=== PATIENT | female | born 1940 | race Caucasian/White ===

== ENCOUNTER → 2016-12-06 | Outpatient (CLI) | payer OTHER ==
[~2016-12-06] VITALS: Ht 160 cm; Wt 84.8 kg
[~2016-12-06] MED LIST: ASPIR 8181 MG PO; BIOTIN1 MG PO; CALCIUM500 M1 PO; HYDROCODONE-AP1 EAC6 PO; LIPITOR10 MG PO; MOBIC15 MG PO; NEURONTIN 300300 M1 PO; PERCOCET 10-321 EACH PO; PRILOSEC OTC20 MG PO; PRINIVIL10 MG PO
--- NOTE | ~2016-12-06 | HPC ---
[facility] [place] [address] PAIN MANAGEMENT CONSULTATION Name: SHAYNA MARIA Room #: REG CATRACHITA Funes#: [id number] Admission: 12/06/16 Attend Phys: Jensen Dorado DO Discharge: Date of : 39 Report #: [id number] THIS REPORT FOR: //name// CC: Edy Dorado The patient is a pleasant 76-year-old female, previously seen in the pain clinic on 11/12/2016, diagnosed with symptomatic lumbar radiculopathy. This patient was given a lumbar epidural injection at L5-S1 at that time. We ordered an MRI of the lumbar spine. She returns to pain clinic today, noting incremental improvement of baseline pain, but still has ongoing pain in back, legs to the feet, it has been present for 6 months. I ordered an MRI of the lumbar spine. It was accomplished on 11/12/2016. I reviewed this with the patient today. L4-L5 notes severe bilateral facet recess stenosis with severe central stenosis at this level. PHYSICAL EXAMINATION: Relatively unchanged, a 76-year-old female, BMI is 33.1 kilograms per meter squared. Vital signs are stable as noted in the EMR. Rises from the chair using armrest. Modestly antalgic gait, diffuse tenderness across the low back, positive straight leg raise, right greater than left. ASSESSMENT: Symptomatic lumbar radiculopathy, secondary to spinal stenosis. RECOMMENDATIONS: Repeat epidural injection today; however, given only modest efficacy at last visit at L5-S1, we will go above the fairly stenotic area (L4-L5) and proceed with the midline injection at L3-L4. If this does not afford adequate relief, we will consider bilateral L4-L5 transforaminal epidural injections. PROCEDURE NOTE: Lumbar epidural injection under fluoroscopy. DESCRIPTION OF PROCEDURE: After both written and informed consent to include risk of spinal cord damage, increased pain, weakness and dural puncture, the patient was taken to the fluoroscopy suite, placed in the prone position. After sterile prep and drape, a skin wheal with lidocaine was raised. A 22-gauge epidural Tuohy needle was inserted in the midline at L3-L4 with good loss to resistance. Negative aspiration for cerebrospinal fluid or blood was noted. Then 1 mL of Omnipaque under biplanar fluoroscopy showed good spread within the epidural space. This was followed with 80 mg of triamcinolone plus 1 mL of 1.5% preservative-free Xylocaine, 0.5 mL Xylocaine was then injected to flush the needle; it was removed. The patient was monitored for an appropriate period of time and discharged in good and stable condition. <ELECTRONICALLY SIGNED> By: Jensne Dorado DO 12/13/16 0858 1638 01 Jensen Dorado DO /nt
[2016-12-06 14:08] VITALS: BP 105/61
== END | disposition home or self-care (01) ==
LOC: PAIN 06:51
DX: M48.06 Spinal stenosis, lumbar region (principal); Z87.891 Personal history of nicotine dependence

== ENCOUNTER → 2016-12-09 | Outpatient (CLI) | payer OTHER | LOC: RAD 08:54 | DX: M47.896 Other spondylosis, lumbar region (principal); M48.06 Spinal stenosis, lumbar region ==

== ENCOUNTER → 2016-12-27 | Outpatient (CLI) | payer OTHER ==
[~2016-12-27] VITALS: Ht 160 cm; Wt 87.1 kg
--- NOTE | ~2016-12-27 | HPC ---
[facility] [place] [address] PAIN MANAGEMENT CONSULTATION Name: SHAYNA MARIA Room #: REG CATRACHITA Funes#: [id number] Admission: 12/27/16 Attend Phys: Jensen Dorado DO Discharge: Date of : 39 Report #: [id number] THIS REPORT FOR: //name// CC: Edy Dorado The patient is a very pleasant 76-year-old female, being treated for lumbar radiculopathy secondary to spinal stenosis. She has had 2 lumbar epidural injections on 11/12/2016 and 12/06/2016. Both injections have afforded good yet incremental and moderately transient relief. She notes the last injection afforded 50% relief for 2 weeks. The pain has begun to recur. She rates her pain as 6/10. She saw Dr. Hammonds and is planning on having decompressive laminectomy on 01/13/2017. Dr. Hammonds suggested and I agree that she should repeat an injection today to help ameliorate symptoms prior to surgery. She has severe central spinal stenosis at L4-L5. Ongoing radicular pain with classic neurogenic claudication. With any activity, she notes pain, that her legs feel quite heavy. PHYSICAL EXAMINATION: Unchanged. This is a pleasant 76-year-old female appearing younger than stated age. BMI is 34 kilograms per meter squared. Vital signs stable as noted on the EMR. Rises from the chair using armrest. Gait is initially tandem, but quickly, she starts to weakness in her legs. Little positive straight leg raise bilaterally. ASSESSMENT: Symptomatic lumbar radiculopathy, secondary to spinal stenosis. PROCEDURE: Lumbar epidural injection under fluoroscopy at L5-S1. RECOMMENDATIONS: Follow up after surgery with Dr. Hammonds as needed for medication management. Thank you for allowing me to participate in this patient's care. PROCEDURE NOTE: Lumbar epidural injection under fluoroscopy. DESCRIPTION OF PROCEDURE: After both written and informed consent to include risk of spinal cord damage, increased pain, weakness and dural puncture, the patient was taken to the fluoroscopy suite, placed in the prone position. After sterile prep and drape, a skin wheal with lidocaine was raised. A 22-gauge epidural Tuohy needle was inserted in the midline at L5-S1 with good loss to resistance. Negative aspiration for cerebrospinal fluid or blood was noted. Then 1 mL of Omnipaque under biplanar fluoroscopy showed good spread within the epidural space. This was followed with 80 mg of triamcinolone plus 1 mL of 1.5% preservative-free Xylocaine, 0.5 mL Xylocaine was then injected to flush the [address] [address] PAIN MANAGEMENT CONSULTATION Name: SHAYNA MARIA Room #: REG [facility] Shantel#: [id number] Admission: 12/27/16 Attend Phys: Jensen Dorado DO Discharge: Date of : 39 Report #: [id number] needle; it was removed. The patient was monitored for an appropriate period of time and discharged in good and stable condition. <ELECTRONICALLY SIGNED> By: Jensen Dorado DO 12/31/16 0811 1540 [id number] Jensen Dorado DO /nt
[2016-12-27 14:13] VITALS: BP 137/77
== END | disposition home or self-care (01) ==
LOC: PAIN 07:10
DX: M54.16 Radiculopathy, lumbar region (principal); M48.06 Spinal stenosis, lumbar region

== ENCOUNTER → 2017-04-13 | Outpatient (CLI) | payer OTHER | LOC: ULTRA 09:22 | DX: R60.0 Localized edema (principal) ==

== ENCOUNTER → 2017-07-19 | Outpatient (CLI) | payer OTHER | LOC: RAD 01:15 | DX: Z12.31 Encounter for screening mammogram for malignant neoplasm of breast (principal) ==

== ENCOUNTER → 2019-03-05 | Outpatient (CLI) | payer OTHER ==
[~2019-03-05] VITALS: Ht 160 cm; Wt 93.1 kg
[~2019-03-05] MED LIST changes: +ATENOLOL 50MG T50 M1 PO; +ATORVASTATIN CA40 MG PO; +LISINOPRIL-HCT1 EAC1 PO; +NEURONTIN600 MG PO
--- NOTE | ~2019-03-05 | HPC ---
[facility] [place] [address] [address] [place] [address] PAIN MANAGEMENT CONSULTATION Name: SHAYNA MARIA Room #: REG [facility] M..#: [id number] Admission: 03/05/19 ������������������ Attend Phys: Georges Freeman MD Discharge: ������������������ Date of : 39 Report #: [id number] THIS REPORT FOR: //name// CC: Edy Freeman DATE OF SERVICE: 03/05/2019 The patient is a pleasant 78-year-old who has post-laminectomy syndrome. She underwent a laminectomy 2 years ago, which was complicated by a postoperative wound infection. She spent additional weeks in the hospital on IV antibiotics and over a month in rehab. She now has pain related to her back issues, scar tissue and she has evidence of neuropathic pain in the leg, which may be in part peripheral neuropathy, but also likely some degree of lumbar radiculopathy. Much of her pain is across her low back. She has limits in range of motion, flexion and extension. She walks with an antalgic gait. She scores her pain as an 8/10. She was recently seen by Dr. Hammonds and is here today for lumbar epidural injection treatment. MEDICATIONS: Lisinopril/hydrochlorothiazide, atorvastatin, atenolol, gabapentin, aspirin, omeprazole, biotin, meloxicam. ALLERGIES: IODINE, CODEINE. PAST MEDICAL HISTORY: Significant for the noted back surgery. She also had cervical radiculopathy, which was treated very successfully by Dr. Jensen Dorado with a cervical epidural injection. She had a mastectomy in 2002 for breast cancer and has done well, considered cured at this time. Dr. Campoverde prescribes her medication for hypertension. 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 She enjoys her work. She denies use of tobacco, drinks alcohol socially, and admits to 1-2 drinks in a 24-hour period of time. REVIEW OF SYSTEMS: Completed by the patient and is once again reviewed. She complains of some recent weight gain, but otherwise describes her review as good general health. PHYSICAL EXAMINATION: A very pleasant 78-year-old female, alert, oriented. No signs of depression or anxiety. She moves independently from sitting to standing position, ambulates without unsteadiness, but her gait is certainly antalgic. Examination of the chest reveals clear breath sounds. Cardiac rhythm is regular. Examination of the spine reveals a scar in the back from previous [facility] [address] [place] [address] PAIN MANAGEMENT CONSULTATION Name: SHAYNA MARIA Room #: REG CATRACHITA AlcarazOwen#: [id number] Admission: 03/05/19 ������������������ Attend Phys: Georges Freeman MD Discharge: ������������������ Date of : 39 Report #: [id number] surgery with reexploration. There is tenderness throughout the scar. She has limits in flexion and extension. Straight leg raising is mildly positive bilaterally, but most of her pain appears to be across the lumbosacral segment. IMPRESSION: Chronic low back pain, post-laminectomy syndrome. RECOMMENDATIONS: Lumbar epidural steroid injection under fluoroscopic guidance. PROCEDURE: She was taken to fluoroscopic suite, placed prone. Skin prepped with ChloraPrep. Skin anesthetized below her scar at L5-S1. A 20-gauge Tuohy epidural needle advanced first attempt in the epidural space with loss of resistance technique. There was no blood, no CSF aspirated. 1 mL of Omnipaque injected. Good spread of dye observed, followed by 3 mL of 0.5% lidocaine mixed with 80 mg of triamcinolone. She tolerated the procedure well and was observed for 45 minutes and discharged. Followup visit planned as needed. ��������������������������������������������� ���������������������������������������� By: ��������������������������������������������� 1650 0552 Georges Freeman MD /nt
[2019-03-05 14:33] VITALS: BP 150/66
--- NOTE | 2019-03-05 14:55 | NUR ---
Pain Clinic Assessment: 1. History of Osteoarthritis: BACK History of Rheumatoid Arthritis: Not Applicable 2. Height: 5 ft. 3 in. 160.0 cm. Weight: 205.2 lb. oz. 93.078 kg. Patient's BMI: 36.4 3. Vital Signs: BP: 150/66 Pulse: 55 Resp: 16 Temp: 02 Sat: 100 ECG Mon: 4. Pain Intensity: 8 5. Fall Risk: Dizziness: N Needs help standing or walking: N Fallen in the last 3 months: Y Fall risk comments: 6. Patient on Blood Thinner: None 7. History of Hypertension: Y 8. Opioid Therapy greater than 6 weeks: N Opiate Contract Signed: 9. Risk Assessment Tool Provided: LOW-0 10. Functional Assessment Tool: 34/ 11. Recreational Drug Use: Never Drug Type: Tobacco Use: Former Smoker Tobacco Type: Amount or Packs/day: How Many Years: Alcohol Use: Yes Frequency: Daily Quant: 2
== END | disposition home or self-care (01) ==
LOC: PAIN 06:59
DX: M54.16 Radiculopathy, lumbar region (principal); G89.29 Other chronic pain; M96.1 Postlaminectomy syndrome, not elsewhere classified; I10 Essential (primary) hypertension; Z91.041 Radiographic dye allergy status; Z98.890 Other specified postprocedural states; Z88.6 Allergy status to analgesic agent; Z79.899 Other long term (current) drug therapy; Z87.891 Personal history of nicotine dependence; Z85.3 Personal history of malignant neoplasm of breast; Z79.82 Long term (current) use of aspirin

== ENCOUNTER → 2019-04-05 | Outpatient (CLI) | payer OTHER ==
[~2019-04-05] VITALS: Ht 160 cm; Wt 92.2 kg
--- NOTE | ~2019-04-05 | HPC ---
[facility] [address] [place] [address] PAIN MANAGEMENT CONSULTATION Name: SHAYNA MARIA Room #: REG CATRACHITA Lissa.#: [id number] Admission: 04/05/19 ������������������ Attend Phys: Georges Freeman MD Discharge: ������������������ Date of : 39 Report #: [id number] THIS REPORT FOR: //name// CC: Edy Freeman DATE OF SERVICE: 04/05/2019 CHIEF COMPLAINT: Followup visit for lumbar spondylosis and low back pain with radiculopathy. The patient returns to pain clinic today and has had an epidural injection with limited improvement. She has had extensive surgery. She has severe stenosis L4-L5 and neurogenic claudication. She now complains little of back pain, but has significant pain in the lumbosacral segment. This has increased dramatically with standing and walking. She can only go a few feet. 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 Given her limited response to epidural injections, today we discussed other treatments for axial low back pain. She may be a candidate for medial branch nerve blocks followed by radiofrequency. She is desperate she says, she will do anything. She is not getting relief from current epidural injections and she does not want to take pain medications. We reviewed options for her. They include medial branch nerve blocks followed by radiofrequency if indicated, possible implantable devices. She understands the intrathecal pump; her has one and is doing well. Because of her lack of leg pain, I do not think that she is a good candidate for that. She could repeat surgery and undergo surgical fusion where she could take pain medications, but again there are complicating issues to medication. I reviewed her x-rays and she does have a fairly significant L4 on L5 anterolisthesis. This could result in either intracanalicular or posterior element facet arthropathy causing pain. Today, we have decided that we will proceed with medial branch nerve blocks in a diagnostic mode. I reviewed the treatment with her, potential risks and benefits of treatment and the lengthy process of undergoing 2 separate diagnostic blocks followed by radiofrequency. She is ready and prepared to go forward. PHYSICAL EXAMINATION: Blood pressure 147/63, heart rate 63, respirations 16. BMI is 36.0. She can move from sitting to standing position, but walks with a very painful antalgic gait. Again, she has genu varus. She has pain across her low back with extension and gets some relief with forward flexion. There is extensive scarring. Sensation is normal in lower extremities, but strength is diminished throughout in a nondermatomal fashion. Deep tendon reflexes are absent. [address] [address] PAIN MANAGEMENT CONSULTATION Name: SHAYNA MARIA Room #: REG [facility] Baylee.#: [id number] Admission: 04/05/19 ������������������ Attend Phys: Georges Freeman MD Discharge: ������������������ Date of : 39 Report #: [id number] IMPRESSION: 1. Lumbar spondylosis, significant with the L4-L5 anterolisthesis. 2. Post-laminectomy syndrome. PROCEDURE: Bilateral medial branch nerve blocks, L2, L3, L4 and L5 dorsal ramus. After informed consent, she was taken to fluoroscopic suite. She was placed prone. The skin was prepped widely with ChloraPrep. We began first on the left. Following suitable oblique images carefully obtained, the skin was anesthetized over the targets for the medial branch nerves on the transverse process of L3, L4, and L5 medial at the junction of the superior articular process. I then anesthetized the skin overlying the sacral ala. A 25-gauge 3-1/2 inch spinal needles were gently advanced into position at each of the targets and I injected each with 1/2-1 mL of 0.5% bupivacaine. Negative aspiration was performed before each injection. The needles were removed and the C-arm was moved to the right. Mirror image injections were performed using the same technique to anesthetize the nerves on that side. In summary, we effectively provided local anesthetic to the L2, L3 and L4 medial branch nerves as well as the L5 dorsal ramus at sacral ala. She was taken to recovery room. She was observed for 20 minutes in the sitting position and then she was asked to walk and try and reproduce her usual pain, which normally occurs within just a few seconds of standing and walking. She was able to do the walking as described and there was no pain whatsoever. I would like to see her back next week. We will proceed with a second round of diagnostic injections. If there is no significant change and we continue to see substantial improvement following these injections then I think we are on target to proceed with radiofrequency ablation. She was discharged without prescription. ��������������������������������������������� ���������������������������������������� By: ��������������������������������������������� 1729 0502 Georges Freeman MD /nt
[2019-04-05 09:23] VITALS: BP 147/63
--- NOTE | 2019-04-05 09:24 | NUR ---
Pain Clinic Assessment: 1. History of Osteoarthritis: BACK History of Rheumatoid Arthritis: Not Applicable 2. Height: 5 ft. 3 in. 160.0 cm. Weight: 203.2 lb. oz. 92.171 kg. Patient's BMI: 36.0 3. Vital Signs: BP: 147/63 Pulse: 63 Resp: 16 Temp: 02 Sat: 100 ECG Mon: 4. Pain Intensity: 7 5. Fall Risk: Dizziness: N Needs help standing or walking: N Fallen in the last 3 months: Y Fall risk comments: 6. Patient on Blood Thinner: None 7. History of Hypertension: Y 8. Opioid Therapy greater than 6 weeks: N Opiate Contract Signed: 9. Risk Assessment Tool Provided: LOW-0 10. Functional Assessment Tool: / 11. Recreational Drug Use: Never Drug Type: Tobacco Use: Former Smoker Tobacco Type: Amount or Packs/day: How Many Years: Alcohol Use: Yes Frequency: Daily Quant: 1-2
== END | disposition home or self-care (01) ==
LOC: PAIN 06:45
DX: M47.816 Spondylosis without myelopathy or radiculopathy, lumbar region (principal); M43.16 Spondylolisthesis, lumbar region; M96.1 Postlaminectomy syndrome, not elsewhere classified; Z87.891 Personal history of nicotine dependence; Z91.041 Radiographic dye allergy status; Z88.6 Allergy status to analgesic agent; Z79.82 Long term (current) use of aspirin; Z79.899 Other long term (current) drug therapy; Z98.890 Other specified postprocedural states

== ENCOUNTER → 2019-04-26 | Outpatient (CLI) | payer OTHER ==
[~2019-04-26] VITALS: Ht 160 cm; Wt 91.4 kg
[2019-04-26 14:52] VITALS: BP 126/72
--- NOTE | 2019-04-26 15:06 | NUR ---
Pain Clinic Assessment: 1. History of Osteoarthritis: BACK History of Rheumatoid Arthritis: Not Applicable 2. Height: 5 ft. 3 in. 160.0 cm. Weight: 201.4 lb. oz. 91.355 kg. Patient's BMI: 35.7 3. Vital Signs: BP: 126/72 Pulse: 55 Resp: 16 Temp: 02 Sat: 100 ECG Mon: 4. Pain Intensity: 7 5. Fall Risk: Dizziness: N Needs help standing or walking: N Fallen in the last 3 months: N Fall risk comments: 6. Patient on Blood Thinner: None 7. History of Hypertension: Y 8. Opioid Therapy greater than 6 weeks: N Opiate Contract Signed: 9. Risk Assessment Tool Provided: LOW-0 10. Functional Assessment Tool: / 11. Recreational Drug Use: Never Drug Type: Tobacco Use: Former Smoker Tobacco Type: Amount or Packs/day: How Many Years: Alcohol Use: Yes Frequency: Daily Quant: 1
--- NOTE | 2019-04-30 18:13 | HPC ---
[facility] [place] [address] PAIN MANAGEMENT CONSULTATION Name: SHAYNA MARIA Room #: REG CLHossein Lissa.#: [id number] Admission: 04/26/19 ������������������ Attend Phys: Georges Freeman MD Discharge: ������������������ Date of : 39 Report #: [id number] THIS REPORT FOR: //name// CC: Edy Freeman DATE OF SERVICE: 04/26/2019 Followup visit for lumbar spondylosis with anterolisthesis L4-L5 and post-laminectomy syndrome. The patient returns to pain clinic today for a second in a series of two bilateral medial branch nerve blocks at L2, L3, L4 and the L5 dorsal ramus. Her first procedure was performed on 04/05/2019 and was deemed positive and successful response in eliminating her pain for a couple of hours. Pain then returned as would be anticipated from a diagnostic injection. We will repeat the procedure today as read by protocol, and then if a similar response is achieved, then I anticipate going forward with radiofrequency ablation. Procedure is well understood by the patient. We reviewed the procedure, potential risks and benefits, she would like to go forward. PHYSICAL EXAMINATION: VITAL SIGNS: Blood pressure is 126/72, heart rate 55, and respirations 16. Her starting pain score today is 7/10. Pain once again is bilateral, across the waist line without significant radiation. IMPRESSION: Lumbar spondylosis with L4-L5 anterolisthesis and post-laminectomy syndrome. PROCEDURE: Bilateral medial branch nerve blocks, L2, L3, L4 and L5 dorsal ramus. After informed consent, she was taken to fluoroscopic suite. She was placed prone, skin was prepped with ChloraPrep and we began on the left. Skin was anesthetized with 1% lidocaine and advanced 25-gauge needles into the target zone for the medial branch nerves at L3, L4, L5 transverse process medial at the junction of the superior articulating process. After negative aspiration, I injected each needle with a total of 1 mL of 0.5% bupivacaine. A fourth and final needle was placed at the L5 dorsal ramus, which is located at the sacral ala. After negative aspiration, I injected that needle in a similar fashion. There were no complications. Galva were removed. C-arm was repositioned. Mirror images were taken of the right and we performed the identical procedure once again at the L2, L3 and L4 medial branch targets as well as L5 dorsal ramus at the sacral ala. She tolerated the procedure well. She was observed for about 20-30 minutes in recovery room, she was [place] [address] PAIN MANAGEMENT CONSULTATION Name: SHAYNA MARIA Room #: REG [facility].#: [id number] Admission: 04/26/19 ������������������ Attend Phys: Georges Freeman MD Discharge: ������������������ Date of : 39 Report #: [id number] discharge and given a diary. Her pain score had diminished from 7 to 1 at discharge. Plan is to go forward with radiofrequency ablation at our earliest available appointment for this extended procedure. Ideally, I would like to perform a bilateral procedure if the patient can tolerate this. Otherwise, we will need to divide that procedure into 2 separate procedures. There may be some insurance company restrictions in doing both sides as well, although, I am quite willing to go forward with bilateral procedure at her followup visit. ��������������������������������������������� <ELECTRONICALLY SIGNED> ���������������������������������������� By: eGorges Freeman MD ��������������������������������������������� 04/30/19 1813 1737 1212 Georges Freeman MD /nt
== END | disposition home or self-care (01) ==
LOC: PAIN 06:56
DX: M47.816 Spondylosis without myelopathy or radiculopathy, lumbar region (principal); M43.16 Spondylolisthesis, lumbar region; M96.1 Postlaminectomy syndrome, not elsewhere classified; Z87.891 Personal history of nicotine dependence; Z91.041 Radiographic dye allergy status; Z88.6 Allergy status to analgesic agent; Z79.899 Other long term (current) drug therapy; Z98.890 Other specified postprocedural states; Z79.82 Long term (current) use of aspirin

== ENCOUNTER → 2019-05-17 | Outpatient (CLI) | payer OTHER ==
[~2019-05-17] VITALS: Ht 160 cm; Wt 90.9 kg
[2019-05-17 14:26] VITALS: BP 159/75
--- NOTE | 2019-05-17 14:39 | NUR ---
Pain Clinic Assessment: 1. History of Osteoarthritis: BACK History of Rheumatoid Arthritis: Not Applicable 2. Height: 5 ft. 3 in. 160.0 cm. Weight: 200.4 lb. oz. 90.901 kg. Patient's BMI: 35.5 3. Vital Signs: BP: 159/75 Pulse: 56 Resp: 18 Temp: 02 Sat: 98 ECG Mon: 4. Pain Intensity: 2 SIT 7 WALKING 5. Fall Risk: Dizziness: N Needs help standing or walking: N Fallen in the last 3 months: N Fall risk comments: 6. Patient on Blood Thinner: None 7. History of Hypertension: Y 8. Opioid Therapy greater than 6 weeks: N Opiate Contract Signed: 9. Risk Assessment Tool Provided: LOW-0 10. Functional Assessment Tool: 11. Recreational Drug Use: Never Drug Type: Tobacco Use: Former Smoker Tobacco Type: Amount or Packs/day: How Many Years: Alcohol Use: Yes Frequency: Quant:
--- NOTE | 2019-05-29 17:25 | HPC ---
[facility] [address] [place] [address] PAIN MANAGEMENT CONSULTATION Name: SHAYNA MARIA Room #: REG [facility] MOwen.#: [id number] Admission: 05/17/19 ������������������ Attend Phys: Georges Freeman MD Discharge: ������������������ Date of : 38 Report #: [id number] THIS REPORT FOR: //name// CC: ADAMARIS Freeman DATE OF SERVICE: 05/17/2019 Followup visit for lumbar spondylosis with anterolisthesis, L4-L5 and post-laminectomy syndrome. The patient returns to the pain clinic today for definitive radiofrequency lesioning of the L2, L3 and L4 medial branch nerves and the L5 dorsal ramus. She has had 2 diagnostic procedures. The first was very successful and the second was a little less so, but she still had a favorable response at 1, 2 and 3 hours, then pain gradually returned to her baseline. We discussed her likelihood of responding in my opinion given her difficult anatomy and her diagnostic responses at about 50%, this is based upon my own assessment. She has fairly marked degenerative changes, in particular to the grade 1, almost grade 2 anterolisthesis of L4 and L5. I believe that a lot of her pain is being generated at that level. She may ultimately require a fusion and has discussed this with Dr. Hammonds. She is not excited about additional surgery given her decompression; however, there may be a need to stabilize the segments. We discussed other measures of managing pain including ongoing strengthening and physical therapy, which she is finding more challenging at her age. Pain limits her ability to perform many of the exercises. She is also limited in the medications that she can use for pain. Any of the stronger pain medications including tramadol and hydrocodone have not been tolerated well and she is unable to use them for relief. PHYSICAL EXAMINATION: GENERAL: Today, she is a erich 78-year-old, alert and oriented. VITAL SIGNS: Blood pressure 159/75, heart rate 56, respirations 18. MUSCULOSKELETAL: She moves from a sitting to standing position. Her gait is antalgic. She has pain with forward flexion, but particularly with extension. Pain is across the waistline without significant radiation. Tenderness across the lumbosacral segment and along her scar. IMPRESSION: Lumbar spondylosis with L4-L5 anterolisthesis, post-laminectomy syndrome. [address] [address] PAIN MANAGEMENT CONSULTATION Name: SHAYNA MARIA Room #: [facility] Lissa.#: [id number] Admission: 05/17/19 ������������������ Attend Phys: Georges Freeman MD Discharge: ������������������ Date of : 38 Report #: [id number] PROCEDURE: Radiofrequency lesioning, L2, L3 and L4 medial branch nerves and the L5 dorsal rami bilaterally. DESCRIPTION OF PROCEDURE: After informed consent, she was taken to fluoroscopic suite. She was placed in the prone position. Skin was prepped with ChloraPrep widely and draped with blue towels. We began first on the left. The skin was anesthetized with the targets for the above mentioned nerves on the L3, L4, L5 transverse process as well as at the sacral ala for the L5 dorsal ramus. I positioned all 4 needles and then performed testing for sensory and motor responses. Sensory responses were challenging. We did achieve some sensory response at 0.5 mA at each location and there was no motor response at testing at 2 Hz up to 1.5. The probes were then removed. Each needle was injected with 0.5 mL of 1% lidocaine and the probes were replaced. After a waiting period of about 60 seconds, I performed a radiofrequency lesioning simultaneously through each needle and time was 90 seconds. The needles were removed. I injected each needle with 0.5 mL of 0.5% bupivacaine mixed with 10 mg triamcinolone. C-arm was then rotated to the right. Once again, targets were identified along the medial transverse process and the sacral ala for the same medial branch nerves as well as the dorsal ramus of L5 on the right, and nearly identical procedure was performed on the right using similar process to perform sensory and motor testing. There was no motor response in the lower extremities in any time by observation and palpation on either side. I performed the same steps to perform lesions of the L2, L3 and L4 medial branch nerves and L5 dorsal ramus on the right and followed once again with 0.5 mL of 0.5% bupivacaine and 10 mg of triamcinolone at each level before removing the needles. She tolerated the procedure well and there were no complications. At the conclusion of the procedure, she was taken to recovery room where she was observed for 45 minutes. There were no complications and her pain score at discharge was 0. She was able to ambulate without difficulty. Instructions were given to apply ice to the area tonight and tomorrow. She is continuing to work at the [employer], [employer]. I told her that if she is feeling sore tonight and tomorrow, she should take the day off. We expect the complete response to be assessed by 2 weeks and we hope for a long duration of response of course. I will follow up by phone in 1-2 weeks. ��������������������������������������������� <ELECTRONICALLY SIGNED> ���������������������������������������� By: Georges Freeman MD ��������������������������������������������� 05/29/19 1725 [id number] Georges Freeman MD /nt
== END | disposition home or self-care (01) ==
LOC: PAIN 07:03
DX: M47.816 Spondylosis without myelopathy or radiculopathy, lumbar region (principal); M43.16 Spondylolisthesis, lumbar region; M96.1 Postlaminectomy syndrome, not elsewhere classified; Z87.891 Personal history of nicotine dependence; Z88.8 Allergy status to other drugs, medicaments and biological substances; Z79.82 Long term (current) use of aspirin; Z79.899 Other long term (current) drug therapy

== ENCOUNTER → 2019-09-07 | Outpatient (CLI) | payer OTHER | LOC: RAD 01:54 | DX: Z12.31 Encounter for screening mammogram for malignant neoplasm of breast (principal) ==

== ENCOUNTER → 2020-09-02 | Outpatient (CLI) | payer OTHER | LOC: SJCVC 14:42 → SJCVCIMAG 14:42 | PROVIDERS: ATTEND Internal Medicine Cardiovascular Disease | DX: I65.23 Occlusion and stenosis of bilateral carotid arteries (principal); I08.1 Rheumatic disorders of both mitral and tricuspid valves; R94.31 Abnormal electrocardiogram [ECG] [EKG]; I45.10 Unspecified right bundle-branch block; I49.9 Cardiac arrhythmia, unspecified; I11.9 Hypertensive heart disease without heart failure; E78.00 Pure hypercholesterolemia, unspecified; Z79.899 Other long term (current) drug therapy; Z87.891 Personal history of nicotine dependence; Z85.3 Personal history of malignant neoplasm of breast; Z86.718 Personal history of other venous thrombosis and embolism ==

== ENCOUNTER → 2020-09-16 | Outpatient (CLI) | payer OTHER | LOC: BC 08:21 | PROVIDERS: ATTEND Obstetrics & Gynecology | DX: Z12.31 Encounter for screening mammogram for malignant neoplasm of breast (principal) ==

== ENCOUNTER 2021-01-14 12:10 | Inpatient (IN) | payer OTHER ==
[~2021-01-14] VITALS: Ht 160 cm; Wt 81.2 kg
[2021-01-14 12:16] VITALS: BP 70/36
[2021-01-14 12:52] LABS: ABSOLUTE NEUTROPHILS 8.6 thou/uL (1.4-8.2); BASOPHILS 0.7 % (0.0-2.0); EOSINOPHILS 0.8 % (0.0-3.0); HEMATOCRIT 34.7 % (37.0-47.0); HEMOGLOBIN 11.6 gm/dL (12.0-15.0); LYMPHOCYTES 11.1 % (24.0-44.0); MCHC 33.5 g/dL (28.0-37.0); MCV 89.6 fL (80.0-100.0); MONOCYTES 8.3 % (1.0-8.0); PLATELET COUNT 293 thou/uL (150-400); POLYS 79.1 % (36.0-66.0); RBC 3.87 mil/uL (4.20-5.00); RDW 13.1 % (10.5-14.5); WBC 10.9 thou/uL (4.0-11.0)
[2021-01-14 13:09] LABS: CALCIUM 9.9 mg/dL (8.5-10.1); POTASSIUM 4.9 mmol/L (3.5-5.1)
[2021-01-14 13:26] LABS: ALBUMIN 3.7 g/dL (3.4-5.0); TOTAL BILIRUBIN 0.8 mg/dL (0.2-1.0); TOTAL PROTEIN 7.6 g/dL (6.4-8.2)
[2021-01-14 16:13] LABS: FOLIC ACID 7.6 ng/mL (8.6-58.9)
[2021-01-14 16:34] VITALS: BP 121/51
[2021-01-14 16:38] VITALS: BP 102/54
[2021-01-14 20:21] VITALS: BP 116/67
[2021-01-15 00:17] VITALS: BP 122/70
[2021-01-15 04:08] VITALS: BP 118/57
[2021-01-15 04:47] LABS: URINE BILIRUBIN NEGATIVE (Negative); URINE BLOOD NEGATIVE (Negative); URINE CLARITY CLEAR; URINE COLOR YELLOW; URINE GLUCOSE-RANDOM* NEGATIVE (Negative); URINE KETONES NEGATIVE (Negative); URINE NITRITE-REFLEX NEGATIVE (Negative); URINE PROTEIN (DIPSTICK) NEGATIVE (Negative); URINE UROBILINOGEN 0.2 E.U./dl (0.2-1.0)
[2021-01-15 04:49] LABS: URINE LEUKOCYTES-REFLEX 2+ (Negative)
[2021-01-15 04:55] LABS: PROT/CREAT RATIO 0.3; URINE CREATININE-RANDOM* 57.6 mg/dL; URINE PROTEIN-RANDOM* 20.1 mg/dL (<11.9)
[2021-01-15 04:59] LABS: BACTERIA-REFLEX None Seen /HPF (None Seen); CASTS None Seen /LPF (None Seen); CRYSTALS None Seen /LPF (None Seen); MUCUS None Seen strn/LPF (None Seen); SQUAMOUS None Seen /LPF (0-3); URINE RBC 0-2 Rare /HPF (0-2); URINE WBC-REFLEX 0-5 Rare /HPF (0-5)
[2021-01-15 05:28] LABS: ABSOLUTE NEUTROPHILS 3.4 thou/uL (1.4-8.2); BASOPHILS 0.6 % (0.0-2.0); EOSINOPHILS 2.1 % (0.0-3.0); HEMATOCRIT 29.5 % (37.0-47.0); HEMOGLOBIN 9.8 gm/dL (12.0-15.0); LYMPHOCYTES 24.2 % (24.0-44.0); MCH 30.2 pg (26.0-34.0); MCHC 33.3 g/dL (28.0-37.0); MCV 90.6 fL (80.0-100.0); MONOCYTES 11.3 % (1.0-8.0); POLYS 61.8 % (36.0-66.0); RBC 3.26 mil/uL (4.20-5.00); WBC 5.5 thou/uL (4.0-11.0)
[2021-01-15 05:31] LABS: PLATELET COUNT 205 thou/uL (150-400)
[2021-01-15 05:39] LABS: CALCIUM 8.3 mg/dL (8.5-10.1); MAGNESIUM 1.6 mg/dL (1.8-2.4); POTASSIUM 4.6 mmol/L (3.5-5.1)
[2021-01-15 05:59] LABS: CREATININE 2.5 mg/dL (0.6-1.0)
[2021-01-15 12:32] VITALS: BP 118/57
== END 2021-01-15 13:35 | disposition home or self-care (01) | DRG 682 ==
LOC: ER 12:10 → EROBS 15:55 → 3W 15:55
PROVIDERS: Emergency Medicine; Internal Medicine Nephrology; Nurse Practitioner; ADMIT Hospitalist; ATTEND Hospitalist
DX: N17.0 Acute kidney failure with tubular necrosis (principal); U07.1 COVID-19; E86.0 Dehydration; E78.5 Hyperlipidemia, unspecified; I10 Essential (primary) hypertension; I95.9 Hypotension, unspecified; Z85.3 Personal history of malignant neoplasm of breast; Z92.3 Personal history of irradiation; Z86.16 Personal history of COVID-19; Z88.6 Allergy status to analgesic agent; Z91.041 Radiographic dye allergy status; Z86.718 Personal history of other venous thrombosis and embolism; Z87.891 Personal history of nicotine dependence; Z79.899 Other long term (current) drug therapy
CPT/HCPCS: 10879

== ENCOUNTER → 2021-03-27 | Outpatient (CLI) | payer OTHER | LOC: SJCVC 14:40 | PROVIDERS: ATTEND Internal Medicine Cardiovascular Disease | DX: R94.31 Abnormal electrocardiogram [ECG] [EKG] (principal); I45.2 Bifascicular block; R00.1 Bradycardia, unspecified; I10 Essential (primary) hypertension; E78.00 Pure hypercholesterolemia, unspecified; I65.23 Occlusion and stenosis of bilateral carotid arteries; Z86.718 Personal history of other venous thrombosis and embolism; Z86.16 Personal history of COVID-19; Z79.82 Long term (current) use of aspirin; Z79.899 Other long term (current) drug therapy; Z87.891 Personal history of nicotine dependence; Z72.89 Other problems related to lifestyle; Z88.5 Allergy status to narcotic agent; Z88.1 Allergy status to other antibiotic agents ==

== ENCOUNTER 2021-05-12 08:37 | Emergency (ER) | payer OTHER ==
[~2021-05-12] VITALS: Ht 160 cm; Wt 77.1 kg
[2021-05-12 10:27] VITALS: BP 116/53
== END 2021-05-12 10:37 | disposition home or self-care (01) ==
LOC: ER 08:37
DX: S92.352A Displaced fracture of fifth metatarsal bone, left foot, initial encounter for closed fracture (principal); I10 Essential (primary) hypertension; E78.5 Hyperlipidemia, unspecified; Z98.890 Other specified postprocedural states; Z86.718 Personal history of other venous thrombosis and embolism; Z85.3 Personal history of malignant neoplasm of breast; Z86.16 Personal history of COVID-19; Z79.899 Other long term (current) drug therapy; Z79.82 Long term (current) use of aspirin; Z88.5 Allergy status to narcotic agent; Z91.041 Radiographic dye allergy status; X50.1XXA Overexertion from prolonged static or awkward postures, initial encounter; Y93.89 Activity, other specified; Y92.89 Other specified places as the place of occurrence of the external cause; Y99.8 Other external cause status

== ENCOUNTER → 2021-06-22 | Outpatient (CLI) | payer OTHER | LOC: RAD 15:20 | PROVIDERS: ATTEND Family Medicine | DX: S92.355D Nondisplaced fracture of fifth metatarsal bone, left foot, subsequent encounter for fracture with routine healing (principal); X58.XXXD Exposure to other specified factors, subsequent encounter ==

== ENCOUNTER → 2021-09-17 | Outpatient (CLI) | payer OTHER | LOC: BC 08:36 | PROVIDERS: ATTEND Family Medicine | DX: Z12.31 Encounter for screening mammogram for malignant neoplasm of breast (principal); Z85.3 Personal history of malignant neoplasm of breast ==

== ENCOUNTER → 2021-12-04 | Outpatient (CLI) | payer OTHER | LOC: SJCVCIMAG 07:20 | PROVIDERS: ATTEND Internal Medicine Cardiovascular Disease | DX: I65.23 Occlusion and stenosis of bilateral carotid arteries (principal); I45.2 Bifascicular block; R94.31 Abnormal electrocardiogram [ECG] [EKG]; I10 Essential (primary) hypertension; E78.00 Pure hypercholesterolemia, unspecified; I82.409 Acute embolism and thrombosis of unspecified deep veins of unspecified lower extremity; M54.16 Radiculopathy, lumbar region; Z86.16 Personal history of COVID-19; Z86.718 Personal history of other venous thrombosis and embolism; Z87.891 Personal history of nicotine dependence; Z72.89 Other problems related to lifestyle; Z79.82 Long term (current) use of aspirin; Z79.899 Other long term (current) drug therapy; Z88.5 Allergy status to narcotic agent; Z88.8 Allergy status to other drugs, medicaments and biological substances ==